=== PATIENT | female | born 1990 | race Hispanic/Latino ===

== ENCOUNTER 2017-10-29 16:23 | Day surgery (SDC) | payer OTHER ==
[2017-10-29 17:34] VITALS: BP 106/60; TEMP 98.7; BMI 30.2
--- NOTE | 2017-10-29 19:20 | PDOC.LDHP ---
Labor and Delivery H&P Chief complaint: other HPI: 27 yo at 36w5d with hx of migraines with visual disturbances who presents with 1 week of nausea, vomiting, and diarrhea. not severe, just intermittent symptoms but this set off a headache that has been worsening. she is having some bright lights flashing in the periphery of her vision. no upper abdominal pain. She has taken 325-650 of tylenol without resolution. Current gestational age (weeks): 36 (5 days) Due date: 11/21/17 Dating criteria: last menstrual period, first trimester ultrasound Grav: 3 Para: 2 OB History Details: 2 previous vaginal deliveries Current complications: none Abnormal US findings: No Past Medical History: Migraines with vision changes Current medications: none Previous surgical history: none Social history: none - Physical Exam Vital signs reviewed and normal: yes General: NAD Heart: RRR Lungs: CTAB Abdomen: gravid Extremeties: no edema FHT: category 1 (moderate varibaility, some baseline changes but all between 130 -140, several accels.) [place] contractions every: 10-15 minutes - OB Labs Blood type: A RH: positive Antibody Screen: negative HIV: negative RPR: negative HEPSAg: negative 1 hour GCT: negative GBS: positive Urine drug screen: negative Rubella: immune - Assessment 1. Migraine 2/2 to dehydration- Patient has a hx of migraines with visual changes. She has had some episodes of nausea, diarrhea and vomitting for the last week. while not severe, this is likely cause to induce migraine. no elevated blood pressure to suggest pre eclampsia. no significant swelling or other symptoms on exam. Will orally rehydrate and treat with acetaminophen and reglan. Will monitor for improvement and patient will likely be ready for discharge home. <Ash Hope - Last Filed: 10/29/17 19:58> <Mary Beth Berry - Last Filed: 10/29/17 21:41> Allergies/Adverse Reactions: Allergies Allergy/AdvReac Type Severity Reaction Status Date / Time No Known Allergies Allergy Verified 10/29/17 19:25 Attending Addendum - Attending Addendum Date/Time: 10/29/17 299 I personally evaluated the patient and discussed the management with Dr. Hope. I agree with the History, Examination, Assessment and Plan documented above with any addition or exceptions noted below. Patient is smiling and laughing and in nad. Neuro-no deficits Ext: no c/c/e Mild dehydration secondary to viral gastroenteritis- po fluids and 1L NS bolus. Headache- mild and no sign of PreE as bps in 100/60s. Tylenol, IVF, and reglan. Monitor for improvement/resolution of symptoms. <Mary Beth Berry Юлия - Last Filed: 10/29/17 21:41>
[2017-10-29] MEDS ORDERED: Metoclopramide HCl 10 MG TAB PO SCH (19:30)
[2017-10-29] MEDS ORDERED: Acetaminophen 500 MG TAB PO SCH (19:30)
[2017-10-29] MEDS ORDERED: Lactated Ringer's 1,000 ML IV SCH (21:15)
--- NOTE | 2017-10-29 22:08 | PDOC.EVN ---
Event Note - Event Note Event Note: Patient received the reglan and the acetaminophen and did feel better, but felt slightly light headed. She was given a Liter of LR for suspected dehydration as a bolus and she felt much better. FHT continued to be cat 1 with moderate variability and only infrequent ctx. Blood pressures continued in normal range. Discharge with plan to FU at [facility].
== END 2017-10-29 22:10 | disposition home or self-care (01) ==
LOC: L&D/OP 16:23
PROVIDERS: ATTEND Student in an Organized Health Care Education/Training Program
DX: O99.283 Endocrine, nutritional and metabolic diseases complicating pregnancy, third trimester (principal); E86.0 Dehydration; Z3A.36 36 weeks gestation of pregnancy

== ENCOUNTER 2017-11-22 04:08 | Inpatient (IN) | payer MEDICAID, OTHER, SELFPAY ==
[2017-11-22 05:42] LABS: Amnisure Test No Membranes Rupture (No Rupture)
[2017-11-22 05:43] LABS: Amnisure Internal Control QC ACCEPTABLE (ACCEPTABLE)
--- NOTE | 2017-11-22 06:32 | PDOC.LDHP ---
Labor and Delivery H&P Chief complaint: contractions (With increased mucus production) HPI: This is a 27 yo female at 40.1 weeks with a due date of 11/21/17 by LMP confirmed by 19.6 week US presenting to L&D with a CC of contractions. She states that the contractions started last night and have progressively increased in frequency and intensity. She also states that she has noticed an increased amount of vaginal mucus. Pt. denies nausea, vomiting, chest pain, and dyspnea. Current gestational age (weeks): 40 (40.1 week) Due date: 11/21/17 Dating criteria: last menstrual period (Consistent with second trimester US) Grav: 3 Para: 1 (1011) OB History Details: Spontaneous lost at 10 weeks Current complications: none Abnormal US findings: No Past Medical History: Depression/Anxiety Current medications: pre-tunde vitamins Previous surgical history: none Allergies/Adverse Reactions: Allergies Allergy/AdvReac Type Severity Reaction Status Date / Time No Known Allergies Allergy Verified 11/22/17 05:06 Social history: drug use (marijuana uses, last at 03/15/17) - Physical Exam Vital signs reviewed and normal: yes General: NAD, breathing through contractions Heart: RRR Lungs: CTAB Abdomen: gravid Extremeties: trace edema FHT: category 1, variability present - Vaginal Exam cm dilated: 3 Effacement: 50% Station: -1 - OB Labs Blood type: A RH: positive HIV: negative RPR: positive (non-reactive) HEPSAg: negative - Assessment L&D Assessment: term patient in labor - Plan Plan: observation in L&D (Observe and recheck cervix in 2 hours. Check amnisure to r/o ruptured membrane)
[2017-11-22] MEDS ORDERED: Ondansetron HCl/PF 4 MG/2 ML Vial IVP PRN ×2 (07:23→08:35)
[2017-11-22] MEDS ORDERED: Lidocaine 1% (PF) 30 ML VIAL SC PRN (07:23)
[2017-11-22] MEDS ORDERED: Promethazine HCl 25 MG/ML VIAL IM PRN ×2 (07:23→08:35)
[2017-11-22] MEDS ORDERED: Acetaminophen 500 MG TAB PO PRN (07:23)
[2017-11-22] MEDS ORDERED: Ibuprofen 800 MG TAB PO PRN (07:23)
[2017-11-22] MEDS ORDERED: DISCONTINUE ALL PREVIOUS NARCOTICS FS SCH (07:30)
[2017-11-22] MEDS ORDERED: Bupivacaine 0.75% 13.4 ML, fentaNYL Citrate/PF 400 MCG in Sodium Chloride 0.9% 78.6 ML EPIDURAL SCH (07:30)
--- NOTE | 2017-11-22 07:30 | PDOC.LDPN ---
Labor & Delivery Progress Note - Subjective Subjective: painful contractions - Objective Vital signs reviewed and normal: yes General: breathing through contractions SVE: 0657 by nurse Dilation: 5 Effacement: 75% (80) Station: 0 FHT: category 1, variability present [place] contractions every: 4-7 - Assessment (1) Term Code(s): Z34.80 - ENCOUNTER FOR SUPRVSN OF NORMAL , UNSP TRIMESTER Current Visit: Yes Status: Acute (2) Depression Code(s): F32.9 - MAJOR DEPRESSIVE DISORDER, SINGLE EPISODE, UNSPECIFIED Current Visit: Yes Status: Acute (3) Anxiety Code(s): F41.9 - ANXIETY DISORDER, UNSPECIFIED Current Visit: Yes Status: Acute Plan: continue plan of care -: awaiting epidural, continue expectant management <Janet Birch - Last Filed: 11/22/17 08:36> Attending Addendum - Attending Addendum Date/Time: 11/22/17 1422 I personally evaluated the patient and discussed the management with Dr. Birch and Dr. Castellano I agree with the History, Examination, Assessment and Plan documented above with any addition or exceptions noted below. 27 yo female at 40.1 wks in active labor. Requesting epidural for pain control. GBS carrier s/p PCN x1 Cat 1 tracing. Continue expectant management. Toney <Karen Negron - Last Filed: 11/22/17 14:23>
[2017-11-22 07:56] LABS: Mean Corpuscular HGB CONC 34.9 g/dL (32.0-36.0); Mean Corpuscular Hemoglobin 30.4 pg (27.0-31.0); Mean Platelet Volume 8.8 fL (7.4-10.4); Platelet Count 150 thou/uL (130-400); Red Blood Cell (RBC) Count 3.96 mill/uL (4.20-5.40); White Blood Cell (WBC) Count 8.3 thou/uL (4.8-10.8)
[2017-11-22] MEDS ORDERED: Penicillin G Potassium 5 MILL.UNITS in Sodium Chloride 0.9% 100 ML IVPB SCH (08:00)
[2017-11-22] MEDS: Lactated Ringer's 1,000 ML IV SCH ×3 (08:32→22:05)
--- NOTE | 2017-11-22 08:32 | PDOC.LDPN ---
Labor & Delivery Progress Note - Subjective Subjective: painful contractions - Objective Vital signs reviewed and normal: yes General: breathing through contractions SVE: 0815 by nurse Dilation: 8 Effacement: 100% Station: 1+ FHT: category 1 (150/mod/+accel/early decel) [place] contractions every: 1-2 - Assessment (1) Term Code(s): Z34.80 - ENCOUNTER FOR SUPRVSN OF NORMAL , UNSP TRIMESTER Current Visit: Yes Status: Acute (2) Depression Code(s): F32.9 - MAJOR DEPRESSIVE DISORDER, SINGLE EPISODE, UNSPECIFIED Current Visit: Yes Status: Acute (3) Anxiety Code(s): F41.9 - ANXIETY DISORDER, UNSPECIFIED Current Visit: Yes Status: Acute Plan: continue plan of care -: epidural placed at 0830 continue expectant management <Janet Birch - Last Filed: 11/22/17 08:30> Attending Addendum - Attending Addendum Date/Time: 11/22/17 4138 I personally evaluated the patient and discussed the management with Dr. Birch and Dr. Castellano I agree with the History, Examination, Assessment and Plan documented above with any addition or exceptions noted below. 27 yo female at 40.1 wks in active labor. doing well. Epidural in place for pain control. Progressing as expected. Cat 1 tracing. Now 8 cm. Will repeat exam in 2 hours or prn. GBS carrier s/p PCN x1. ABrayMD <Karen Negron - Last Filed: 11/22/17 14:19>
[2017-11-22] MEDS ORDERED: diphenhydrAMINE 50 MG/ML VIAL IVP PRN (08:35)
[2017-11-22] MEDS ORDERED: Lactated Ringer's 500 ML IV PRN (08:35)
[2017-11-22] MEDS ORDERED: Eucerin (Mineral Oil/Petrolatum,White) 30 gm Jar TOP PRN (08:35)
[2017-11-22] MEDS ORDERED: Naloxone HCl 0.4 mg/ml Vial IVP PRN ×2 (08:35)
[2017-11-22] MEDS ORDERED: ePHEDrine/0.9% NaCl/PF SYRINGE 50 mg/10 ml SLOW IVP PRN (08:35)
[2017-11-22 08:43] LABS: Syphilis Antibody Nonreactive (Nonreactive); Syphilis Antibody Index 0.11 S/CO (<1.00 Non-Reactive)
[2017-11-22 08:44] LABS: HBSAg Index 0.13 S/CO (0-0.99); Hep B Surf Ag Non-Reactive S/CO (NonReactive)
[2017-11-22] MEDS ORDERED: Communication Order-Pharmacy FS SCH (08:45)
[2017-11-22] MEDS ORDERED: fentaNYL Citrate/PF 400 MCG, Bupivacaine 0.5% 20 ML in Sodium Chloride 0.9% 72 ML EPIDURAL SCH (08:45)
--- NOTE | 2017-11-22 08:50 | PDOC.LDPN ---
Labor & Delivery Progress Note - Subjective Subjective: painful contractions - Objective Vital signs reviewed and normal: yes General: breathing through contractions SVE: 0845 Dilation: 10 Effacement: 100% Station: 2+ FHT: category 1 (150/mod/accel/late decel) [place] contractions every: 1-2 - Assessment (1) Term Code(s): Z34.80 - ENCOUNTER FOR SUPRVSN OF NORMAL , UNSP TRIMESTER Current Visit: Yes Status: Acute (2) Depression Code(s): F32.9 - MAJOR DEPRESSIVE DISORDER, SINGLE EPISODE, UNSPECIFIED Current Visit: Yes Status: Chronic (3) Anxiety Code(s): F41.9 - ANXIETY DISORDER, UNSPECIFIED Current Visit: Yes Status: Chronic Plan: continue plan of care -: anticipate delivery soon <Janet Birch - Last Filed: 11/22/17 10:02> Attending Addendum - Attending Addendum Date/Time: 11/22/17 1478 I personally evaluated the patient and discussed the management with Dr. Birch and Dr. Castellano I agree with the History, Examination, Assessment and Plan documented above with any addition or exceptions noted below. Complete. Epidural in place. Will labor down for 30 min to 1 hour. Cat 1 tracing. ABrayMD <Karen Negron - Last Filed: 11/22/17 14:26>
[2017-11-22] MEDS ORDERED: Bupivacaine 0.25% HCL 30 ML VIAL ONE (10:00)
--- NOTE | 2017-11-22 10:00 | PDOC.OPDEL ---
Addendum entered and electronically signed by Janet Birch DO 11/22/17 17:52 : Attending: Dr. Negron Delivering physician: Dr. Eyal Scott Procedure: Spontaneous Vaginal Delivery Anesthesia: epidural QBL: 530ml Pre-op Diagnosis: 1. Term intrauterine in labor 2. GBS+ 3. anxiety/depression Post-op Diagnosis: 1. Term intrauterine , delivered 2. same as above 3. shoulder dystocia, <30 secs, resolved with Dinh. Indications: A 27y/o female presents in active labor Delivery Note: This is a 27 yo F now @ 40.1wks who delivered a viable M infant at 0928 on 11/22/2017. Following an uneventful antepartum course , a vigorous male was delivered over a 1st degree midline perineal and labial laceration in the MANDA position. Anterior Shoulder was delivered after a shoulder dystocia was noted and Dinh maneuver was performed in under 30 seconds. Then remainder of the body delivered. No nuchal cord. The head was held down and mouth and nares were bulb suctioned. Cord clamped (after delayed cord clamping) and cut and cord blood collected. Placenta delivered intact (in the [place] presentation) with a 3 vessel cord noted. Fundal massage was performed and the fundus was firm. Right labial laceration noted and repaired with 3-0 vicryl suture in two interrupted stitches with good approximation and hemostasis. went to nursery in good condition for routine care. Apgars were 9/9 at 1 & 5 minutes, respectively. Patient tolerated delivery well and went to after routine recovery/care. Original Note: OB Operative/Delivery Note Delivery Dr/Surgeon: MD Janet Rios DO Assist: Attending: Karen Negron MD Pre-Delivery Diagnosis: active labor, ruptured membrane, other (GBS+) Procedure/Post Delivery Dx: spontaneous vaginal delivery Weeks gestation: 40 (40.1) Anesthesia: epidural - Findings A Sex: male - 1 min: 9 - 5 min: 9 - Additional Findings/Plan Placenta delivered: spontaneous Repaired Obstetrical Laceration: right labial Estimated blood loss: QBL 530 ml Compilations/Other Findings: 1st degree midline perineal laceration, hemostatic placenta intact with 3 vessel cord vigorous male infant Post delivery plan: routine recovery <Janet Birch - Last Filed: 11/22/17 09:58> Attending Addendum - Attending Addendum Date/Time: 11/24/17818 I personally evaluated the patient and discussed the management with Dr. Birch and Dr. Castellano I agree with the History, Examination, Assessment and Plan documented above with any addition or exceptions noted below. I was present for the entire delivery and participated in all aspects of the delivery. < 1 minute shoulder dystocia relieved with Dinh. APGARS 9/9 ABrayMD <Karen Negron - Last Filed: 11/24/17 08:27>
[2017-11-22] MEDS: NS / Oxytocin 40 units/1000ml 1,000 ML IV PRN ×2 (10:07→11:30)
[2017-11-22] MEDS ORDERED: Varicella virus, LIVE 0.5 ML VIAL SC ONE (12:24)
[2017-11-22] MEDS ORDERED: Adacel (T-DAP) 0.5 ML VIAL IM ONE (12:24)
[2017-11-22] MEDS ORDERED: Milk Of Magnesia 30 ML UDCUP PO PRN (12:24)
[2017-11-22] MEDS ORDERED: Acetaminophen/Codeine 30-300mg Tablet PO PRN ×3 (12:24→18:10)
[2017-11-22] MEDS ORDERED: NS / Oxytocin 40 units/1000ml 1,000 ML IV SCH (12:24)
[2017-11-22] MEDS ORDERED: Lanolin Ointment 7 GM TUBE TOP PRN (12:24)
[2017-11-22] MEDS ORDERED: Bisacodyl 10 MG SUPP PR PRN (12:24)
[2017-11-22] MEDS ORDERED: Measles/Mumps/Rubella 10 MCG/0.5 ML VIAL SC ONE (12:24)
[2017-11-22] MEDS ORDERED: Preparation H Ointment 28 GM TUBE PR PRN (12:24)
[2017-11-22] MEDS: Penicillin G 2.5 MILL.units 2.5 MILL.UNITS in Premix Bag 1 BAG IVPB SCH ×3 (13:48→22:07)
[2017-11-22] MEDS: Ibuprofen 800 MG TAB PO SCH ×2 (14:47→20:57)
[2017-11-22] MEDS: Ferrous Sulfate 325 MG TAB PO SCH (17:25)
[2017-11-22] MEDS: Acetaminophen 325 MG TAB PO PRN (17:29)
--- NOTE | 2017-11-22 17:51 | PDOC.FM ---
- Objective Vital Signs & Weight: Vital Signs (12 hours) Temp Pulse Resp BP BP Pulse Ox 11/22/17 17:20 98.2 F 59 L 22 H 91/54 L 11/22/17 14:45 97/47 L 11/22/17 14:10 97.8 F 64 20 93/40 L 98 11/22/17 13:00 98.2 F 69 20 97/47 L 98 11/22/17 11:50 98.0 F 67 20 101/55 L 98 11/22/17 08:00 98.4 F 92 17 Weight Weight 173 g Result Diagrams: 11/22/17 07:31 Dx/Plan (1) Term Code(s): Z34.80 - ENCOUNTER FOR SUPRVSN OF NORMAL , UNSP TRIMESTER Status: Acute (2) Depression Code(s): F32.9 - MAJOR DEPRESSIVE DISORDER, SINGLE EPISODE, UNSPECIFIED Status : Chronic (3) Anxiety Code(s): F41.9 - ANXIETY DISORDER, UNSPECIFIED Status: Chronic
[2017-11-22] MEDS: Docusate Calcium (SURFAK) 240 MG CAP PO SCH (20:57)
[2017-11-22] MEDS: Benzocaine/Menthol 20-0.5% 60 ML CAN TOP PRN (20:58)
[2017-11-23] MEDS: Ibuprofen 800 MG TAB PO SCH ×3 (05:35→21:30)
[2017-11-23 06:14] LABS: Hemoglobin 10.5 g/dL (12.0-16.0); Mean Corpuscular HGB CONC 35.1 g/dL (32.0-36.0); Mean Corpuscular Hemoglobin 30.7 pg (27.0-31.0); Mean Corpuscular Volume 87.5 fL (78.0-98.0); Mean Platelet Volume 8.9 fL (7.4-10.4); Platelet Count 148 thou/uL (130-400); RBC Distribution Width 13.1 % (11.5-14.5); Red Blood Cell (RBC) Count 3.44 mill/uL (4.20-5.40); White Blood Cell (WBC) Count 10.1 thou/uL (4.8-10.8)
--- NOTE | 2017-11-23 06:41 | PDOC.PP ---
Post Progress Note Post Day #: 1 Subjective: Patient reports vaginal pain and can feel her stitches. She says the medication given helps and is adequate. is going well and pt has no questions. She desires contraception and is undecided on pills vs nexplanon. PO intake tolerated: yes Flatus: yes Ambulation: yes Vital Signs (12 hours) Temp Pulse Resp BP BP 11/23/17 05:30 98.0 F 69 16 96/53 L 11/23/17 00:00 98.4 F 63 16 96/42 L 11/22/17 20:00 98.4 F 66 16 92/51 L Weight Weight 173 g - Physical Examination General: NAD Cardiovascular: no m/r/g, RRR Respiratory: clear to auscultation bilaterally, non-labored breathing Abdominal: + bowel sounds, lochia, no distention, appropriately TTP Fundus firm & at: above umbilicus Extremities: negative homans (B) Perineum: suture intact, no abscess Neurological: no gross focal deficits Psychiatric: A&Ox3, normal affect Result Diagrams: 11/23/17 05:57 Additional Labs: Post Labs Blood Type A POSITIVE 11/22/17 07:31 Hep Bs Antigen Non-Reactive S/CO (NonReactive) 11/22/17 07:31 (1) care following vaginal delivery Code(s): Z39.2 - ENCOUNTER FOR ROUTINE FOLLOW-UP Status: Acute (2) Shoulder dystocia during labor and delivery Code(s): O66.0 - OBSTRUCTED LABOR DUE TO SHOULDER DYSTOCIA Status: Acute (3) Depression Code(s): F32.9 - MAJOR DEPRESSIVE DISORDER, SINGLE EPISODE, UNSPECIFIED Status : Chronic (4) Anxiety Code(s): F41.9 - ANXIETY DISORDER, UNSPECIFIED Status: Chronic - Assessment/Plan 27 yo now delivered via @ 40.1 wks on 11/22 at 0928. Post -PP day 1 -delivery complicated by shoulder dystocia, <30 secs, resolved w/ Dinh -QBL 530ml -PP H/H 10.5/30.1 -pain well controlled -continue routine PP care GBS+ -inadequate treatment, one dose PCN given intrapartum History of anxiety/depression -pt has experienced depression before -discussed with patient the signs/symptoms and the importance of following up with her doctor if symptoms come Low TSH -patient denies history of thyroid problems, has never been on medication -follow up outpatient to for recheck and workup -0.184 on 04/14/2017 (@ 8 weeks) Dispo: Stable. Possible discharge tomorrow. <Janet Birch - Last Filed: 11/23/17 14:06> Vital Signs (12 hours) Temp Pulse Resp BP BP 11/23/17 08:10 98.1 F 80 18 93/55 L 11/23/17 05:30 98.0 F 69 16 96/53 L Weight Weight 78.471 kg Result Diagrams: 11/23/17 05:57 Additional Labs: Post Labs Blood Type A POSITIVE 11/22/17 07:31 Hep Bs Antigen Non-Reactive S/CO (NonReactive) 11/22/17 07:31 <Edward Rendon - Last Filed: 11/23/17 16:34> Attending Addendum - Attending Addendum Date/Time: 11/23/17 3329 I personally evaluated the patient and discussed the management with Dr. Birch. I agree with and repeated the History, Examination, Assessment and Plan documented above with any addition or exceptions noted below. F/u on TSH. Plan as above. <Edward Rendon - Last Filed: 11/23/17 16:34>
[2017-11-23] MEDS: Prenatal Vitamin 1 TAB PO SCH (08:56)
[2017-11-23] MEDS: Ferrous Sulfate 325 MG TAB PO SCH ×2 (08:56→17:44)
[2017-11-23] MEDS: Docusate Calcium (SURFAK) 240 MG CAP PO SCH ×2 (08:56→21:30)
[2017-11-23] MEDS: Lactated Ringer's 1,000 ML IV SCH ×2 (10:18→16:18)
[2017-11-23] MEDS: Acetaminophen/Codeine 30-300mg Tablet PO PRN ×2 (16:15→21:29)
[2017-11-23] MEDS: Benzocaine/Menthol 20-0.5% 60 ML CAN TOP PRN (21:29)
[2017-11-24] MEDS: Lactated Ringer's 1,000 ML IV SCH ×2 (04:33→07:35)
--- NOTE | 2017-11-24 05:52 | PDOC.PP ---
Post Progress Note Vital Signs (12 hours) Temp Pulse Resp BP 11/24/17 08:00 98.0 F 62 18 102/58 L 11/24/17 07:55 98.0 F 62 18 Weight Weight 78.471 kg Result Diagrams: 11/23/17 05:57 Additional Labs: Post Labs Blood Type A POSITIVE 11/22/17 07:31 Hep Bs Antigen Non-Reactive S/CO (NonReactive) 11/22/17 07:31 <Susy Castellano - Last Filed: 11/24/17 16:42> Post Day #: 2 Subjective: Patient feels well. Reports some abdominal pain with ambulation. going well. PO intake tolerated: yes Flatus: yes Ambulation: yes Vital Signs (12 hours) Temp Pulse Resp BP 11/23/17 20:26 98.2 F 68 18 109/54 L Weight Weight 78.471 kg - Physical Examination General: NAD Cardiovascular: no m/r/g, RRR Respiratory: clear to auscultation bilaterally, non-labored breathing Abdominal: + bowel sounds, lochia, no distention, appropriately TTP Extremities: negative homans (B) Neurological: no gross focal deficits Psychiatric: A&Ox3, normal affect Result Diagrams: 11/23/17 05:57 Additional Labs: Post Labs Blood Type A POSITIVE 11/22/17 07:31 Hep Bs Antigen Non-Reactive S/CO (NonReactive) 11/22/17 07:31 (1) care following vaginal delivery Code(s): Z39.2 - ENCOUNTER FOR ROUTINE FOLLOW-UP Status: Acute (2) Shoulder dystocia during labor and delivery Code(s): O66.0 - OBSTRUCTED LABOR DUE TO SHOULDER DYSTOCIA Status: Acute (3) Depression Code(s): F32.9 - MAJOR DEPRESSIVE DISORDER, SINGLE EPISODE, UNSPECIFIED Status : Chronic (4) Anxiety Code(s): F41.9 - ANXIETY DISORDER, UNSPECIFIED Status: Chronic - Assessment/Plan 27 yo now delivered via @ 40.1 wks on 11/22 at 0928. Post -PP day 2 -delivery complicated by shoulder dystocia, <30 secs, resolved w/ Dinh -QBL 530ml -PP H/H 10.5/30.1 -pain well controlled -continue routine PP care GBS+ -inadequate treatment, one dose PCN given intrapartum -48 hrs monitoring will be complete this am History of anxiety/depression -pt has experienced depression before -discussed with patient the signs/symptoms and the importance of following up with her doctor if symptoms come Low TSH -patient denies history of thyroid problems, has never been on medication -0.184 on 04/14/2017 (@ 8 weeks) - Recheck here was 1.67 Dispo: Stable. Plan for discharge today. <Janet Birch - Last Filed: 11/24/17 18:05>
[2017-11-24] MEDS: Ibuprofen 800 MG TAB PO SCH ×2 (06:18→13:44)
[2017-11-24] MEDS: Acetaminophen/Codeine 30-300mg Tablet PO PRN (06:20)
[2017-11-24 08:12] VITALS: BP 102/58; TEMP 98
[2017-11-24] MEDS: Ferrous Sulfate 325 MG TAB PO SCH ×2 (09:49→17:07)
[2017-11-24] MEDS: Prenatal Vitamin 1 TAB PO SCH (09:50)
[2017-11-24] MEDS: Docusate Calcium (SURFAK) 240 MG CAP PO SCH (09:50)
[2017-11-24] MEDS: Acetaminophen 325 MG TAB PO PRN (10:46)
== END 2017-11-24 17:30 | disposition home or self-care (01) | DRG 775 ==
LOC: L&D/OP 04:08 → L&D 07:07 → 3SW 11:54
PROVIDERS: ADMIT Student in an Organized Health Care Education/Training Program; ATTEND Student in an Organized Health Care Education/Training Program
PROC: 10E0XZZ Delivery of Products of Conception, External Approach (ICD-10-PCS; principal; 2017-11-22)
PROC: 0UQMXZZ Repair Vulva, External Approach (ICD-10-PCS; 2017-11-22)
DX: O48.0 Post-term pregnancy (principal); Z3A.40 40 weeks gestation of pregnancy; Z37.0 Single live birth; O66.0 Obstructed labor due to shoulder dystocia; O99.820 Streptococcus B carrier state complicating pregnancy; O99.344 Other mental disorders complicating childbirth; F32.9 Major depressive disorder, single episode, unspecified; F41.9 Anxiety disorder, unspecified; O70.0 First degree perineal laceration during delivery
CPT/HCPCS: 36415; 51702; 84112; 84443; 85027; 86780; 86850; 86900; 86901; 87340; 99285; J2001; J2540; J3010; J7050; S0020